=== PATIENT | female | born 1995 | race American Indian/Alaskan Native ===

== ENCOUNTER 2020-07-08 15:14 | Emergency (ER) | payer SELFPAY ==
--- NOTE | 2020-07-08 15:37 | Emergency Department Report ---
Blank Doc - Documentation Documentation: 25-year-old female that emerge department complaining of pelvic cramping and v aginal vaginal discharge has a history of recurrent bacterial vaginosis and presents to the ED to be evaluated for BV as well as STD she did take treatment for BV 2 days ago and feels that the discharge has improved just wanted to be on the safe side to make sure she denies anything is going on she reports no fever, chills, sweats no chest pain no palpitations no nausea no vomiting and reports no hemoptysis no hematemesis no hematochezia no vaginal bleeding This initial assessment/diagnostic orders/clinical plan/treatment(s) is/are subject to change based on patients health status, clinical progression and re- assessment by fellow clinical providers in the ED. Further treatment and workup at subsequent clinical providers discretion. Patient/guardian urged not to elope from the ED as their condition may be serious if not clinically assessed and managed. Initial orders include: urine and culture
--- NOTE | 2020-07-08 16:32 | Emergency Department Report ---
ED Female HPI - General Chief complaint: Abdominal Pain Stated complaint: ABDOMINAL PAIN Time Seen by Provider: 07/08/20 15:56 Source: patient Mode of arrival: Ambulatory Limitations: No Limitations - History of Present Illness Initial comments: 25-year-old -Citizen Of [place] female with past medical history of recurrent bacterial vaginosis presents emerged department complaining of a malodorous vaginal discharge. Initially thought this was bacterial vaginosis she took Flagyl about 2 days ago states that her symptoms did did improve although she wa nted to be sure and be screened for sexually transmitted diseases as well. Pain, no vaginal bleeding no flank pain, no fever, chills, sweats. MD Complaint: vaginal discharge - Related Data Previous Rx's Medication Instructions Recorded Last Taken Type metroNIDAZOLE [Flagyl] 2,000 mg PO ONCE #4 tab 07/08/20 Unknown Rx Allergies Allergy/AdvReac Type Severity Reaction Status Date / Time No Known Allergies Allergy Unverified 07/08/20 15:44 ED Review of Systems ROS: Stated complaint: ABDOMINAL PAIN Other details as noted in HPI Comment: All other systems reviewed and negative ED Past Medical Hx - Medications Home Medications: Home Medications Medication Instructions Recorded Confirmed Last Taken Type metroNIDAZOLE [Flagyl] 2,000 mg PO ONCE #4 tab 07/08/20 Unknown Rx ED Physical Exam - General Limitations: No Limitations General appearance: alert, in no apparent distress - Head Head exam: Present: atraumatic, normocephalic - Eye Eye exam: Present: normal appearance - ENT ENT exam: Present: mucous membranes moist - Neck Neck exam: Present: normal inspection - Respiratory Respiratory exam: Present: normal lung sounds bilaterally. Absent: respiratory distress - Cardiovascular Cardiovascular Exam: Present: regular rate, normal rhythm. Absent: systolic murmur, diastolic murmur, rubs, gallop - GI/Abdominal GI/Abdominal exam: Present: soft, normal bowel sounds - External exam: Present: other (Excoriation to the inguinal creases) Speculum exam: Present: vaginal discharge - Extremities Exam Extremities exam: Present: normal inspection, normal capillary refill - Back Exam Back exam: Present: normal inspection - Neurological Exam Neurological exam: Present: alert, oriented X3, CN II-XII intact, normal gait - Psychiatric Psychiatric exam: Present: normal affect, normal mood. Absent: anxious, flat affect - Skin Skin exam: Present: warm, dry, intact, normal color. Absent: rash ED Medical Decision Making - Lab Data Lab Results 07/08/20 Range/Units 16:22 Urine Color Yellow (Yellow) Urine Turbidity Clear (Clear) Urine pH 5.0 (5.0-7.0) Ur Specific [place] 1.030 (1.003-1.030) Urine Protein <15 mg/dl (Negative) mg/dL Urine Glucose (UA) Neg (Negative) mg/dL Urine Ketones 20 (Negative) mg/dL Urine Blood Sm (Negative) Urine Nitrite Neg (Negative) Urine Bilirubin Neg (Negative) Urine Urobilinogen < 2.0 (<2.0) mg/dL Ur Leukocyte Esterase Sm (Negative) Urine WBC (Auto) 2.0 (0.0-6.0) /HPF Urine RBC (Auto) 8.0 (0.0-6.0) /HPF U Epithel Cells (Auto) 8.0 (0-13.0) /HPF Urine Mucus 3+ /HPF Urine HCG, Qual Negative (Negative) - Medical Decision Making 25-year-old Citizen Of [place] female with vaginal discharge for 7 STD wet prep showed bacterial vaginosis noted no trichomonas or yeast. Based on examination low low suspicion for gonorrhea or chlamydia we will treat her accordingly for her bacterial vaginosis my vaginal discharge MDM Critical care attestation.: If time is entered above; I have spent that time in minutes in the direct care of this critically ill patient, excluding procedure time. ED Disposition Clinical Impression: Bacterial vaginosis Disposition: [id number] TO HOME OR SELFCARE Is pt being admited?: No Does the pt Need Aspirin: No Condition: Stable Instructions: Abdominal Pain (ED), Bacterial Vaginosis (ED), Bacterial Vaginosis, [id number], Antibiotic Medicine, Adult, Vaginitis, [id number] Additional Instructions: Your wet prep shows bacterial vaginosis. Gonorrhea or chlamydia test will take 24 hours to result we will let you for any positive results please check back with the medical records to receive your actual GC results. Based on your examination I have a low suspicion for gonorrhea or chlamydia Prescriptions: metroNIDAZOLE [Flagyl] 2,000 mg PO ONCE #4 tab Referrals: [facility] [Provider Group] - 3-5 Days Forms: STI Treatment and Prevention
[2020-07-08 16:41] LABS: Bilirubin,Urine NEG (Negative); Blood,Urine SM (Negative); Color,Urine Yellow (Yellow); Mucus,Urine 3+ /HPF; Protein,Urine <15 mg/dL mg/dL (Negative); Urobilinogen,Urine < 2.0 mg/dL (<2.0)
[2020-07-08 16:44] LABS: HCG Qualitative,Urine Negative (Negative)
[2020-07-08 17:13] VITALS: BP 126/89
== END 2020-07-08 17:14 | disposition home or self-care (01) ==
LOC: ED 15:14
DX: N76.0 Acute vaginitis (principal); Z79.899 Other long term (current) drug therapy
CPT/HCPCS: 81001; 81025; 87210; 87591; 99283